=== PATIENT | female | born 2005 | race Hispanic/Latino ===

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

== ENCOUNTER 2023-12-30 14:28 | Emergency (ER) | payer OTHER | END 2023-12-30 15:50 | disposition home or self-care (01) | LOC: MADERS 14:28 | DX: S46.811A Strain of other muscles, fascia and tendons at shoulder and upper arm level, right arm, initial encounter (principal); S46.812A Strain of other muscles, fascia and tendons at shoulder and upper arm level, left arm, initial encounter; M89.512 Osteolysis, left shoulder; W18.30XA Fall on same level, unspecified, initial encounter; Y92.091 Bathroom in other non-institutional residence as the place of occurrence of the external cause | CPT/HCPCS: 99283 ==

== ENCOUNTER 2024-05-05 08:55 | Emergency (ER) | payer OTHER ==
[2024-05-05] MEDS ORDERED: Ibuprofen 200 MG TAB ONE (09:08)
[2024-05-05] MEDS ORDERED: Acetaminophen 325 MG TAB ONE (09:08)
[2024-05-05 09:45] LABS: Hematocrit 36.4 % (36.0-47.0); Hemoglobin 11.8 g/dL (12.0-16.0); Mean Corpuscular Hemoglobin 29.2 pg (25.0-35.0); Mean Corpuscular Volume 90.5 fl (78.0-98.0); Red Blood Cell (RBC) Count 4.03 mill/uL (4.00-5.20); White Blood Cell (WBC) Count 8.9 10x3/uL (4.8-10.8)
[2024-05-05 09:46] LABS: Manual Diff?? YES; Mean Corpuscular HGB CONC 32.3 g/dL (32.0-36.0); Mean Platelet Volume 7.4 fL (7.4-10.4); Platelet Count 294 10x3/uL (130-400); RBC Distribution Width 12.2 % (11.5-14.5)
[2024-05-05 09:48] LABS: INR-International Normal Ratio 1.2; Prothrombin Time 14.9 sec (12.0-14.7)
[2024-05-05 09:50] LABS: Band 3 % (5-11); Lymphocytes 16 % (28-48); MDiff Complete? YES; Monocytes 10 % (0-4); Neutrophil 71 % (31-61)
[2024-05-05 09:51] LABS: Platelet Adequacy Comment Appears Adequate; RBC Morph Comment Within Normal Limits
[2024-05-05 09:52] LABS: Anion Gap 12 mmol/L (10-20); BUN (Urea Nitrogen) 9 mg/dL (7.0-18.7); Calc. Creatinine Clearance 0 mL/min (70-130); Calcium 9.2 mg/dL (7.8-10.44); Carbon Dioxide 24 mmol/L (22-29); Chloride 107 mmol/L (98-107); Estimated GFR 130; Glucose 86 mg/dL (70-105); Sodium 139 mmol/L (136-145)
== END 2024-05-05 10:23 | disposition short-term general hospital (02) ==
LOC: MADERS 08:55
DX: S93.421A Sprain of deltoid ligament of right ankle, initial encounter (principal); R60.0 Localized edema; X58.XXXA Exposure to other specified factors, initial encounter
CPT/HCPCS: 36415; 80048; 85025; 85610; 85730; 99284

== ENCOUNTER 2024-05-17 10:39 | Emergency (ER) | payer OTHER ==
[2024-05-17] MEDS ORDERED: predniSONE 20 MG TAB ONE (11:21)
[2024-05-17] MEDS ORDERED: Ibuprofen 600 MG TAB ONE (11:21)
== END 2024-05-17 11:27 | disposition home or self-care (01) ==
LOC: MADERS 10:39
DX: L52 Erythema nodosum (principal); M79.604 Pain in right leg; M79.605 Pain in left leg
CPT/HCPCS: 99283; J7512